=== PATIENT | female | born 1945 | race Caucasian/White ===

== ENCOUNTER 2019-08-07 08:39 | Inpatient (IN) | payer MEDICARE ==
[~2019-08-07] VITALS: Ht 165.1 cm; Wt 62.6 kg
[2019-08-07 08:48] VITALS: BP 105/56
[2019-08-07] MEDS ORDERED: ASA81BEC PO (08:58)
[2019-08-07] MEDS ORDERED: COZAAR 25 MG TA25 M1 PO (09:01)
[2019-08-07] MEDS ORDERED: PROTONIX40 M2 PO (09:02)
[2019-08-07] MEDS ORDERED: PRAVACHOL40 MG PO (09:02)
[2019-08-07] MEDS ORDERED: TYLENOL325 MG PO (09:03)
[2019-08-07] MEDS ORDERED: INTERMEZZO3.5 MG SUBLING (09:03)
[2019-08-07] MEDS ORDERED: POTASSIUM20 PO (09:04)
[2019-08-07] MEDS ORDERED: HYDROCHLOROTHIA25 M2 PO (09:04)
[2019-08-07 09:07] LABS: URINE BILIRUBIN NEGATIVE (Negative); URINE BLOOD TRACE (Negative); URINE CLARITY CLEAR; URINE COLOR YELLOW; URINE GLUCOSE-RANDOM NEGATIVE (Negative); URINE KETONES 1+ (Negative); URINE LEUKOCYTES-REFLEX NEGATIVE (Negative); URINE NITRITE-REFLEX NEGATIVE (Negative); URINE PROTEIN 1+ (Negative); URINE SPECIFIC GRAVITY 1.015 (1.005-1.030); URINE UROBILINOGEN 0.2 E.U./dl (0.2-1.0)
[2019-08-07 09:25] LABS: HEMATOCRIT 35.3 % (37.0-47.0); HEMOGLOBIN 11.6 gm/dL (12.0-15.0); MCH 26.3 pg (26.0-34.0); MCHC 32.9 g/dL (28.0-37.0); MCV 80.1 fL (80.0-100.0); MPV 8.4 fl. (7.2-11.1); NUCLEATED RBCS 0 /100WBC; PLATELET COUNT* 300 thou/uL (150-400); RBC 4.41 mil/uL (4.20-5.00); RDW-CV 14.9 % (10.5-14.5)
[2019-08-07 09:35] LABS: CALCIUM 9.3 mg/dL (8.5-10.1); CREATININE 1.2 mg/dL (0.6-1.3); POTASSIUM 3.5 mmol/L (3.5-5.1)
[2019-08-07 09:39] LABS: ALBUMIN 3.4 g/dL (3.4-5.0); TOTAL BILIRUBIN 0.9 mg/dL (<0.1-1.0); TOTAL PROTEIN 7.9 g/dL (6.4-8.2)
[2019-08-07 09:51] LABS: ABSOLUTE LYMPHOCYTES 2.7 thou/uL (0.8-5.3); ABSOLUTE MONOCYTES 0.5 thou/uL (0.0-1.2); ABSOLUTE NEUTROPHILS 13.8 thou/uL (1.6-8.1)
--- NOTE | 2019-08-07 10:15 | NUR ---
CT COMPLEATED PT RETURNED TO ED
[2019-08-07 12:36] VITALS: BP 99/63
--- NOTE | 2019-08-07 14:18 | EKG ---
[place] [address] ELECTROCARDIOGRAM REPORT Name: DUGLAS MILTON Room: [address] ADM IN .R.#: [id number] Admission: 08/07/19 Attend Phys: Ej Noriega Discharge: Date of : 43 Date of Service: 08/07/19 0934 Report #: [id number] THIS REPORT FOR: //name// [facility] ED Test Date: 2019-08-07 Test Time: 09:34:31 Pat Name: DUGLAS MILTON Department: Room: 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 08/07/19 1417 0934 0934 Alessandro Sarkar MD, [facility] /EPI
[2019-08-07 15:26] VITALS: BP 126/76
--- NOTE | 2019-08-07 17:51 | NUR ---
PT ARRIVED TO FLOOR ABOUT 1230 FROM ER. PORT LINE PATENT, INFUSING. PAIN PARTIALLY CONTROLLED WITH TORADOL AND FENTANYL. DENIED NAUSEA. UP AD SARAH. ADMISSION COMPLETE. PT CURRENTLY IN SURGERY. WILL UPDATE NOTE UPON ARRIVAL BACK TO FLOOR.
[2019-08-08 05:26] LABS: HEMATOCRIT 26.6 % (37.0-47.0); MCH 26.6 pg (26.0-34.0); MCHC 32.9 g/dL (28.0-37.0); MCV 80.7 fL (80.0-100.0); MPV 8.5 fl. (7.2-11.1); RBC 3.3 mil/uL (4.20-5.00); RDW-CV 14.8 % (10.5-14.5); WBC 8.6 thou/uL (4.0-11.0)
[2019-08-08 05:28] LABS: HEMOGLOBIN 8.8 gm/dL (12.0-15.0)
[2019-08-08 05:38] LABS: ALBUMIN 2.4 g/dL (3.4-5.0); CALCIUM 7.7 mg/dL (8.5-10.1); CREATININE 1.1 mg/dL (0.6-1.3); MAGNESIUM 2.1 mg/dL (1.8-2.4); PHOSPHORUS* 3.2 mg/dL (2.5-4.9); POTASSIUM 3.6 mmol/L (3.5-5.1); TOTAL BILIRUBIN 0.4 mg/dL (<0.1-1.0); TOTAL PROTEIN 5.9 g/dL (6.4-8.2)
[2019-08-08 07:45] VITALS: BP 124/69
[2019-08-08 16:00] VITALS: BP 119/72
--- NOTE | 2019-08-08 17:37 | NUR ---
PT REMAINED ALERT AND ORIENTED. PT C/O PAIN, MEDS GIVEN ORDERED. PT TOLERATED REGULAR DIET. PT RESTING IN BED. ALISHA DRAIN IN PLACE. FALL RISK PRECAUTIONS IN PLACE. HOURLY ROUNDING COMPLETED. WILL CONTINUE TO MONITOR.
[2019-08-08] MEDS ORDERED: AUGMENTIN 875-1 EACH PO (17:48)
[2019-08-08] MEDS ORDERED: NORCO 5-325 TA1 EAC1 PO (17:48)
[2019-08-08] MEDS ORDERED: IBUPROFEN200 M1 PO (17:49)
[2019-08-08] MEDS ORDERED: COLACE100 MG PO (17:50)
[2019-08-08 17:52] VITALS: BP 124/69
[2019-08-08 17:56] VITALS: BP 124/69
[2019-08-08 17:57] VITALS: BP 124/69
--- NOTE | 2019-08-08 19:07 | NUR ---
PT GIVEN DISCHARGE INFORMATION, CARE NOTES, AND PRESCRIPTIONS. PORT DEACCESSED. ALISHA DRAIN REMOVED. PT REMAINED ALERT AND ORIENTED. FALL RISK PRECAUTIONS IN PLACE. HOURLY ROUNDING COMPLETED. PT LEFT AMBULATORY WITH NURSING STAFF TO HOME.
--- NOTE | 2019-08-09 17:07 | PATH ---
[address] [address] PATHOLOGY RPT PROCEDURE Name: LORENA CARREON Room: [address] IN M.R.#: [id number] Admission: 08/07/19 Date of : 43 Discharge: 08/08/19 Report #: [id number] Path Case #: [id number] [facility] Accession Number: [id number] . 01 Material submitted: . gallbladder - GALLBLADDER WITH CONTENTS . 01 Clinical history: . Acute cholecystitis with cholelithiasis with hydrops of gallbladder . 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 (OJSE:norbert; 08/09/2019) MBR 08/09/2019 1550 Local . 02 Electronically signed: . Danilo Kidd MD, Pathologist NPI- [id number] . 01 Gross description: . The specimen is received in formalin, labeled "Lorena Carreon, gallbladder and contents". Received is a previously opened gallbladder measuring 12.3 x 4.5 x 3.6 cm in greatest dimensions displaying a pale wilder to weathers-wilder, shaggy serosal surface. Opening the specimen reveals a velvety, roughened mucosa with a gallbladder wall thickness of 0.1 cm. The lumen of the gallbladder is moderately filled with light wilder friable material. A single green-black, nodular calculus is present, and no masses or lesions are noted grossly. [employer] Director sections, to include the proximal margin, are submitted in cassette A1. (CAA; 08/08/2019) QA/QA 08/08/2019 1558 Local . 02 Pathologist provided ICD-10: K80.10 . 02 CPT . 376350 Specimen Comment: A courtesy copy of this report has been sent to [phone] Specimen Comment: [phone], Specimen Comment: Report sent to ,DR PATTERSON / DR ANDERSON Performed at: [address] [facility] [address] [id number] MD Arsenio Casarez MD Phone: [phone] Performed at: 02 [place] [address] PATHOLOGY RPT PROCEDURE Name: LORENA CARREON Room: [address] IN M.R.#: [id number] Admission: 08/07/19 Date of : 43 Discharge: 08/08/19 Report #: [id number] Path Case #: [id number] [facility] [address], [place], [place] [id number] MD Danilo Kidd MD Phone: [phone]
--- NOTE | 2019-08-21 07:21 | OP ---
[facility] [address] [place] [address] OPERATIVE REPORT Name: DUGLAS MILTON Room: [address] IN M.R.#: [id number] Admission: 08/07/19 Attend Phys: Ajay Hernandez Discharge: 08/08/19 Date of : 43 Report #: [id number] THIS REPORT FOR: //name// cc: Torri Lane MD, Pamela MD THIS REPORT FOR: //name// CC: Torri Noriega DO DATE OF SERVICE: 08/07/2019 REFERRING PHYSICIAN: Torri Lane MD PREOPERATIVE DIAGNOSES: Acute cholecystitis with cholelithiasis. POSTOPERATIVE DIAGNOSES: Acute cholecystitis with cholelithiasis and hydrops of the gallbladder and umbilical hernia. PROCEDURE: Laparoscopic cholecystectomy with aspiration of the gallbladder and repair of umbilical hernia. SURGEON: Donald Stanton DO ELECTRICAL TECH: Dorothy Chavira DO, PGY2, resident. SECOND FLIGHT ENGINEER HELICOPTER: Reji Dixon DO, PGY1, resident. ANESTHESIA: General endotracheal. ESTIMATED BLOOD LOSS: 100 mL. COMPLICATIONS: None. DESCRIPTION OF PROCEDURE: After obtaining proper consents and discussing risks and complications with the patient, she was taken to the operating room, laid in the supine position, administered general endotracheal anesthetic. She was then prepped and draped in a usual sterile fashion. A timeout was performed. We confirmed the appropriate patient and procedure. Preoperative antibiotics had been given. SCDs were in place. We then made a small curvilinear infraumbilical skin incision with a #11 scalpel blade. This was carried down through the skin into the subcutaneous tissue using electrocautery for hemostasis. Once the umbilical hernia was identified, it was completely dissected free. I opened the hernia sac and [place] [address] OPERATIVE REPORT Name: DUGLAS MILTON Room: [address]#: [id number] Admission: 08/07/19 Attend Phys: Ajay Hernandez Discharge: 08/08/19 Date of : 43 Report #: [id number] peritoneal cavity. We then identified the fascial edges, which were grasped and elevated with hemostats. I then placed two 0 Vicryl sutures in a cnecjs-ya-orzsh fashion to secure the Rodrigo trocar, which was then inserted through the umbilical hernia defect. Once this was done, insufflation was begun. Once insufflation was complete, full visual inspection of the anterior abdominal organs was performed. This revealed a very large gallbladder, which was hanging down below the patient's umbilicus. The liver appeared normal. There were no other gross abnormalities identified at this point other than adhesions to the gallbladder and a very thick walled appearing gallbladder as well. We were then able to place the patient in reverse Trendelenburg position. A 5 mm subxiphoid trocar was placed. We then placed another 5 mm right upper quadrant trocar, actually this was right lower quadrant trocar, in order to aspirate the contents of the gallbladder. An aspiration needle was inserted through this right-sided trocar and inserted into the gallbladder. We then aspirated approximately 80 mL initially clear fluid from the gallbladder, the last 20 mL or so were more purulent in appearance. Once this was done, we then placed another 5 mm trocar in the right mid abdomen and then I was able to grasp and elevate the gallbladder. The left lobe of the liver was hanging over into our way quite a bit, so we elected to change person to a 30-degree scope to allow for better visualization. Once this was done, I was able to take down the hepatoduodenal ligament bluntly until we were able to visualize the cystic duct as it coursed directly into the gallbladder. The cystic duct was quite large. There was also a stone in the neck of the gallbladder that I was able to milk back into the body of the gallbladder to allow for better visualization. Once we were confirmed that the cystic duct was coursing directly into the gallbladder, I elected to use an Endo-LENCHO to divide the cystic duct. We used a 45 mm purple load to go across the cystic duct. Once this was done, I then identified the cystic artery, which was lying behind the enlarged cystic duct. This was dissected free. It was clipped proximally and distally and then divided between clips. I then was easily able to remove the gallbladder from the liver bed using blunt dissection as well as electrocautery to maintain hemostasis. The gallbladder was then placed into an Endopouch and actually took the entire Endopouch up. We then copiously irrigated. I checked for any bleeding, there was none identified. We did place a 15-Turkish Robbie-Burton drain through the right-sided trocar and placed that into the gallbladder fossa. The drain was sutured in place using 2-0 nylon suture. We then stopped the insufflation. All air was released, the trocars were removed under direct vision. We did have to enlarge the umbilical fascial defect in order to remove the gallbladder. Once the gallbladder was removed, we then closed the umbilical hernia defect using multiple interrupted 0 Prolene sutures in a psynje-hy-ghqdv fashion. The umbilicus was then reattached to the fascia using a 2-0 Vicryl suture and the skin was closed using 4-0 Monocryl subcuticular stitches for all [address] [address] OPERATIVE REPORT Name: DUGLAS MILTON Room: [address] IN M.R.#: [id number] Admission: 08/07/19 Attend Phys: Ajay Hernandez Discharge: 08/08/19 Date of : 43 Report #: [id number] of the incisions. Dermabond was placed. The patient was then awakened in the operating room and transported to recovery room in stable condition. <ELECTRONICALLY SIGNED> By: Donald Stanton DO 08/21/19 0721 1945 2004Donald Stanton DO /nt
== END 2019-08-08 19:30 | disposition home or self-care (01) | DRG 418 ==
LOC: M.ERS 08:39 → M.TBA-ER 10:39 → M.ERS 10:39 → M.ORTHSURG 12:53 → M.TBA-ER 12:53 → M.ORTHSURG 23:42
PROVIDERS: Family Medicine; ADMIT Internal Medicine; ATTEND Internal Medicine
PROC: 0FT44ZZ Resection of Gallbladder, Percutaneous Endoscopic Approach (ICD-10-PCS; principal; 2019-08-07)
PROC: 0WQF4ZZ Repair Abdominal Wall, Percutaneous Endoscopic Approach (ICD-10-PCS; principal; 2019-08-07)
DX: K80.00 Calculus of gallbladder with acute cholecystitis without obstruction (principal); R65.10 Systemic inflammatory response syndrome (SIRS) of non-infectious origin without acute organ dysfunction; K82.1 Hydrops of gallbladder; N17.9 Acute kidney failure, unspecified; E44.0 Moderate protein-calorie malnutrition; K42.9 Umbilical hernia without obstruction or gangrene; K82.8 Other specified diseases of gallbladder; K52.9 Noninfective gastroenteritis and colitis, unspecified; N18.9 Chronic kidney disease, unspecified; I12.9 Hypertensive chronic kidney disease with stage 1 through stage 4 chronic kidney disease, or unspecified chronic kidney disease; I77.810 Thoracic aortic ectasia; E78.00 Pure hypercholesterolemia, unspecified; K59.00 Constipation, unspecified; Z95.5 Presence of coronary angioplasty implant and graft; Z79.899 Other long term (current) drug therapy; Z79.82 Long term (current) use of aspirin; Z85.118 Personal history of other malignant neoplasm of bronchus and lung; Z87.891 Personal history of nicotine dependence; Z95.9 Presence of cardiac and vascular implant and graft, unspecified; Z92.21 Personal history of antineoplastic chemotherapy; Z92.3 Personal history of irradiation; Z68.23 Body mass index [BMI] 23.0-23.9, adult